=== PATIENT | female | born 1990 | race African-American/Black ===

== ENCOUNTER 2021-07-25 18:35 | Emergency (ER) | payer MEDICAID ==
[~2021-07-25] VITALS: Ht 167.6 cm; Wt 66.0 kg
[2021-07-25 19:48] LABS: HEMATOCRIT. 39.5 % (36.0-48.0); HEMOGLOBIN. 13.4 g/dL (12.0-16.0); MEAN CORPUSCULAR HEMOGLOBIN 28.9 pg (28.0-32.0); MEAN CORPUSCULAR VOLUME 85.1 fL (81.0-99.0); MEAN PLATELET VOLUME 8.8 fl (7.4-10.4); PLATELET 318 x1000/uL (130-400); RED BLOOD CELL COUNT 4.64 mill/uL (4.2-5.4)
[2021-07-25 19:51] LABS: HCG SCREEN NEGATIVE
[2021-07-25 19:52] LABS: CHLORIDE 103 mEq/L (98-107)
[2021-07-25 20:05] LABS: CREATINE KINASE 53 IU/L (26-192)
[2021-07-25 20:11] LABS: PLATELET ESTIMATE NORMAL
[2021-07-25] MEDS ORDERED: DIPHENHYDRAMINE 25MG CAPSULE PO ONE (21:00)
[2021-07-25] MEDS ORDERED: IBUPROFEN 400MG TABLET PO ONE (21:00)
[2021-07-25 21:13] LABS: CLARITY URINE CLOUDY (CLEAR); COLOR URINE YELLOW (YELLOW); KETONES URINE TRACE (NEGATIVE); LEUKOCYTE ESTERASE URINE TRACE (NEGATIVE); NITRITE URINE NEGATIVE (NEGATIVE); OCCULT BLOOD URINE 2+ (NEGATIVE); PROTEIN URINE NEGATIVE (NEGATIVE); SPECIFIC GRAVITY URINE 1.025 (1.005-1.030)
[2021-07-25 21:15] VITALS: BP 108/67
[2021-07-25 21:22] LABS: PARTIAL THROMBOPLASTIN TIME 31.6 sec (23.4-31.0); PROTHROMBIN TIME 11.1 sec (9.6-11.0)
[2021-07-25] MEDS ORDERED: NITR-87 MT (22:40)
[2021-07-25] MEDS ORDERED: IBUP-2028 MT (22:40)
== END 2021-07-25 23:01 | disposition home or self-care (01) ==
LOC: ER 18:35
DX: M79.18 Myalgia, other site (principal); N39.0 Urinary tract infection, site not specified; L50.9 Urticaria, unspecified
CPT/HCPCS: 36415; 80053; 81003; 81025; 82550; 84703; 85025; 99283